=== PATIENT | male | born 1980 | race Hispanic/Latino ===

== ENCOUNTER 2021-08-16 09:58 | Emergency (ER) | payer OTHER ==
[~2021-08-16] VITALS: Ht 175.3 cm; Wt 163.3 kg
[2021-08-16] MEDS ORDERED: SPIRONOLACTONE25 MG PO (10:29)
[2021-08-16] MEDS ORDERED: COZAAR50 MG PO (10:30)
[2021-08-16] MEDS ORDERED: OXYCODONE HCL5 MG PO (10:31)
[2021-08-16] MEDS ORDERED: ULTRAM50 MG PO (10:31)
--- OUTSIDE RECORDS SUMMARY | 2021-08-16 13:36 | XMS ---
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 EAlec VISIT COUNT (12 MO.) [address] [place] [id number] ED [place] TOTAL 2 NOTE: Visits indicate total known visits. ED/UCC VISIT TRACKING (12 MO.) 08/16/2021 10:00 [facility] [place] TYPE: Emergency COMPLAINT: - DIFFICULTY BREATHING, BODY SWELLING/RASH 08/16/2021 09:02 [facility] [place] TYPE: Emergency COMPLAINT: - SWOLLEN SHORTNESS OF BREATH DIAGNOSES: - SWOLLEN SHORTNESS OF BREATH - SWOLLEN INPATIENT VISIT TRACKING (12 MO.) No inpatient visits to display in this time frame [id number]
[2021-08-16] MEDS ORDERED: FUROSEMIDE40 MG PO (15:01)
== END 2021-08-16 15:18 | disposition home or self-care (01) ==
LOC: ED 09:58
DX: I11.0 Hypertensive heart disease with heart failure (principal); I50.9 Heart failure, unspecified; E66.9 Obesity, unspecified; Z68.43 Body mass index [BMI] 50.0-59.9, adult; Z88.5 Allergy status to narcotic agent; Z88.8 Allergy status to other drugs, medicaments and biological substances
CPT/HCPCS: 71045; 76705; 80053; 81001; 83880; 84484; 85025; 85610; 85730; 96374; 99285-25; J1940; J7030

== ENCOUNTER 2022-08-23 11:51 | Emergency (ER) | payer OTHER ==
[~2022-08-23] VITALS: Ht 175.3 cm; Wt 124.3 kg
[~2022-08-23 11:51] MED LIST: COZAAR50 MG PO; FUROSEMIDE40 MG PO; OXYCODONE HCL5 MG PO; SPIRONOLACTONE25 MG PO; ULTRAM50 MG PO
--- OUTSIDE RECORDS SUMMARY | 2022-08-23 11:56 | XMS ---
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 [facility] VISIT COUNT (12 MO.) Daya Mendoza TOTAL 1 NOTE: Visits indicate total known visits. ED/UCC VISIT TRACKING (12 MO.) 08/23/2022 11:[address] [facility] [place] TYPE: Emergency COMPLAINT: - L FOOT NUMB, R KNEE STIFF/CRACKS INPATIENT VISIT TRACKING (12 MO.) No inpatient visits to display in this time frame [email or web address]
[2022-08-23] MEDS ORDERED: SPIRONOLACTONE25 MG PO (15:23)
[2022-08-23] MEDS ORDERED: COZAAR50 MG PO (15:23)
== END 2022-08-23 15:44 | disposition home or self-care (01) ==
LOC: ED 11:51
DX: I10 Essential (primary) hypertension (principal); Z79.899 Other long term (current) drug therapy
CPT/HCPCS: 99283